=== PATIENT | male | born 1995 | race Caucasian/White ===

== ENCOUNTER 2020-09-18 11:24 | Emergency (ER) | payer OTHER ==
--- NOTE | 2020-09-18 11:59 | ED Physician Documentation ---
History of Present Illness - Stated complaint Stated Complaint: SI - Chief complaint Chief Complaint: MHE - History obtained from History obtained from: Patient - Additonal information Additional information: 24-year-old man with past medical history of depression not currently on meds (previously prozac, paxil), GERD, otherwise healthy p/w depression and passive thoughts of suicide s/p recent breakup 3 weeks ago. no weapons in the home, no prior suicide attempts, no active plan. denies HI/AVH. requesting outpatient mental health resources. Review of Systems Ten Systems: 10 systems reviewed and negative Psychiatric: reports: Depressed. denies: Homicidal, Hallucinations, Anxiety PD PAST MEDICAL HISTORY - Past Medical History Past Medical History: Yes Cardiovascular: None Respiratory: Asthma Neuro: Headaches Endocrine/Autoimmune: None GI: GERD : None HEENT: None Psych: Depression, Anxiety Musculoskeletal: None Derm: None - Past Surgical History Past Surgical History: No - Present Medications Home Medications: Ambulatory Orders Medication Instructions Recorded Confirmed FLUoxetine [PROzac] 10 mg PO DAILY #30 tab 09/18/20 Omeprazole [PriLOSEC] 20 mg PO DAILY 09/18/20 09/18/20 - Allergies Allergies/Adverse Reactions: Allergies Allergy/AdvReac Type Severity Reaction Status Date / Time No Known Drug Allergies Allergy Verified 09/18/20 11:36 - Social History Does the pt smoke?: No Smoking Status: Never smoker Does the pt drink ETOH?: No Does the pt have substance abuse?: No - Immunizations Immunizations are current?: Yes PD ED PE NORMAL - Vitals Vital signs reviewed: Yes - General General: Alert and oriented X 3, No acute distress, Well developed/nourished - HEENT HEENT: Atraumatic, PERRL, EOMI - Neck Neck: Supple, no meningeal sign, Thyroid normal - Cardiac Cardiac: RRR - Respiratory Respiratory: No respiratory distress, Clear bilaterally - Abdomen Abdomen: Non tender, Non distended - Back Back: Other (no deformity) - Derm Derm: Normal color, Warm and dry - Extremities Extremities: No deformity - Neuro Neuro: Alert and oriented X 3 - Psych Psych: Normal affect, Other (depressed mood) Results - Vitals Vitals: Vital Signs - 24 hr 09/18/20 11:31 Temperature 36.7 C Heart Rate 99 Respiratory 18 Rate Blood Pressure 145/85 H O2 Saturation 98 Oxygen O2 Source Room air PD MEDICAL DECISION MAKING - ED course ED course: 24-year-old man presents with depression and passive thoughts of suicide. He states that he has gotten counseling previously at the [facility] but usually takes about a week and he wanted to speak with somebody today. He does not have a plan to kill himself and says that he is only having passive thoughts. Does not want inpatient admission. We will have him speak with our outreach and education social worker for outpatient resources. Departure - Departure Disposition: 01 Home, Self Care Clinical Impression: Depression, Suicidal thoughts Condition: Good Instructions: ED Depression Prescriptions: FLUoxetine [PROzac] 10 mg PO DAILY #30 tab Comments: You were seen in the emergency department for depression and thoughts of suicide. Please return immediately if you develop any more persistent thoughts or a plan to kill yourself. Please also return if you have thoughts of killing or harming other people or hallucinations, new or worsening symptoms or other concerns. Follow-up with the mental health resources that our outreach and education social worker provided.
[2020-09-18 13:17] VITALS: BP 122/79
== END 2020-09-18 13:17 | disposition home or self-care (01) ==
LOC: ED 11:24
DX: F32.9 Major depressive disorder, single episode, unspecified (principal); R45.851 Suicidal ideations; K21.9 Gastro-esophageal reflux disease without esophagitis
CPT/HCPCS: 99283

== ENCOUNTER 2022-05-04 11:57 | Day surgery (SDC) | payer OTHER ==
[2022-05-04] MEDS ORDERED: LACTATED RINGERS 1,000 ML IV ONE (12:06)
[2022-05-04] MEDS ORDERED: CEFAZOLIN 2G/50ML 0.9% NS 2 GM/50 ML BAG IV ONE (12:09)
--- NOTE | 2022-05-04 13:21 | ANESTHESIA ---
Pre-Anesthesia VS, & Labs - Diagnosis right inguinal hernia - Procedure open right inguinal hernia repair with mesh Height: 5 ft 10 in Weight (kg): 84 kg Body Mass Index: 26.5 BMI Classification: Overweight - NPO >8 hours Home Medications and Allergies Home Medications: Ambulatory Orders No Known Home Medications 05/04/22 Allergies/Adverse Reactions: Allergies Allergy/AdvReac Type Severity Reaction Status Date / Time No Known Drug Allergies Allergy Verified 05/04/22 12:23 Anes History & Medical History - Anesthetic History Anesthesia Complications: reports: No previous complications - Medical History Cardiovascular: reports: None Pulmonary: reports: None Gastrointestinal: reports: None Urinary: reports: None Neuro: reports: Migraines Musculoskeletal: reports: Chronic back pain Endocrine/Autoimmune: reports: None Blood Disorders: reports: None Skin: reports: None Smoking Status: Current every day smoker (vapes) Psychosocial: reports: Depression, Anxiety History of Cancer?: No - Surgical History Eyes Ears Nose Throat (EENT): reports: Myringotomy (tubes) Exam General: Alert, Oriented x3, Cooperative, No acute distress Dental: WNL Mouth Openin Fingerbreadth Neck Mobility: Normal Mallampati classification: II Thyromental Distance: 4-6 cm Mental/Cognitive Status: Alert/Oriented X3, Normal for patient Plan Anesthesia Type: General Consent for Procedure(s) Verified and Reviewed: Yes Code Status: Attempt Resuscitation ASA classification: 2-Mild systemic disease Is this case an emergency?: No
[2022-05-04] MEDS ORDERED: NALOXONE 0.4 MG/ML VIAL IVP PRN (13:31)
[2022-05-04] MEDS ORDERED: ATROPINE ABBOJECT 1 MG/10 ML SYRINGE IVP PRN (13:31)
[2022-05-04] MEDS ORDERED: MORPHINE 2 MG/ML CARPUJECT IVP PRN (13:31)
[2022-05-04] MEDS ORDERED: fentaNYL 100 MCG/2 ML VIAL IVP PRN (13:31)
[2022-05-04] MEDS ORDERED: ONDANSETRON 4 MG/2 ML VIAL IVP PRN (13:31)
[2022-05-04] MEDS ORDERED: HYDROmorphone 0.5 MG/0.5 ML SYRINGE IVP PRN (13:31)
[2022-05-04] MEDS ORDERED: LIDOCAINE MPF 2%-EPI 1:200000 20 ML VIAL ONE (13:35)
[2022-05-04] MEDS ORDERED: BUPIVACAINE 0.25% PF 30 ML VIAL ONE (13:36)
[2022-05-04] MEDS ORDERED: MIDAZOLAM 2 MG/2 ML VIAL ONE (13:50)
[2022-05-04] MEDS ORDERED: PROPOFOL 200 MG/20 ML VIAL IVP ONE ×2 (13:50→15:34)
[2022-05-04] MEDS ORDERED: fentaNYL 100 MCG/2 ML VIAL ONE (13:51)
[2022-05-04] MEDS ORDERED: LACTATED RINGERS 1,000 ML IV SCH (14:00)
[2022-05-04] MEDS ORDERED: ONDANSETRON 4 MG/2 ML VIAL ONE (14:35)
[2022-05-04] MEDS ORDERED: ROCURONIUM 50 MG/5 ML VIAL ONE (14:35)
[2022-05-04] MEDS ORDERED: DEXAMETHASONE 4 MG/ML VIAL ONE (14:35)
[2022-05-04] MEDS ORDERED: BUPIVACAINE 0.25% PF 30 ML VIAL SUBQ ONE (14:48)
[2022-05-04] MEDS ORDERED: ePHEDrine 50 MG/ML VIAL IVP ONE (14:56)
[2022-05-04] MEDS ORDERED: PHENYLEPHRINE 10 MG/ML VIAL ONE (14:56)
[2022-05-04] MEDS ORDERED: SUGAMMADEX 200 MG/2 ML VIAL IVP ONE (15:33)
[2022-05-04] MEDS ORDERED: KETOROLAC 30 MG/ML VIAL ONE (15:34)
--- NOTE | 2022-05-04 15:55 | OPERATIVE REPORT ---
Operative Report - General Procedure Date: 05/04/22 Planned Procedure: open right inguinal hernia repair with mesh Pre-Op Diagnosis: right inguinal hernia Procedure Performed: open right inguinal hernia repair with mesh/ nayan Post Op Diagnosis: indirect inguinal hernia - Procedure Note Primary Surgeon: thom sun Anesthesia Technique: General ET tube, Local Pathology: benign tissue. not sent Estimated Blood Loss (mL): 2 Drain/Tube Type: Other (none) Indications: painful hernia bulge Findings: as above Complications: none - Other Other Information/Narrative: Patient was properly identified brought to the operating room and placed in supine position. Sequential compression devices were placed. General endotracheal anesthesia was induced. He was prepped and draped in a sterile fashion and given preoperative antibiotics. Local anesthetic was given throughout the procedure. A 5 cm incision was made in the direction of Ronald's lines just cephalad of the pubic tubercle. Dissection proceeded with cutting current cautery. The superficial epigastric vein was identified clamped divided and tied with 3-0 Vicryl. Dissection proceeded down to the aponeurosis. The aponeurosis was opened in the direction of its fibers and extended to the external ring. Cord structures were mobilized and brought up. The nerves were carefully protected and preserved. Cord structures were mobilized and brought up. An indirect inguinal hernia was present. The hernia sac was mobilized off the cord structures and suture ligated with 2 O silk and further reduced. Preperitoneal fat was removed. The base was tied with 2 O vicryl. Polypropylene mesh was cut to size and with tails. The mesh was secured with multiple interrupted 0 Ethibond sutures. She was placed along the pubic tubercle, Herbert's ligament area and along the shelving border of Poupart's ligament. Sutures were placed medially along the abdominal wall musculature and internal oblique. The medial tail of the mesh was secured to the shelving border of Poupart's ligament with 3 interrupted 0 ethibond sutures recreating the internal ring of appropriate size. An additional suture was placed in the crotch of the mesh recreating an internal ring of appropriate size. Aponeurosis was closed with a running 2-0 Vicryl suture. The opposite was closed with interrupted 3-0 Vicryl suture. Buried interrupted subdermal 3-0 Vicryl sutures were then placed. And was closed with a running 4-0 Monocryl subcuticular suture. Dressing was applied. Patient was awakened and brought to recovery in good condition.
[2022-05-04] MEDS ORDERED: HYDROcod/ACETAM 5/325 MG TABLET PO PRN (15:56)
[2022-05-04] MEDS ORDERED: LACTATED RINGERS 200 ML IV ONE (16:00)
[2022-05-04] MEDS ORDERED: HYDROcod/ACETAM 5/325 MG TABLET ONE (16:41)
[2022-05-04 16:48] VITALS: BP 123/78
--- NOTE | 2022-05-04 17:18 | ANESTHESIA POST OP EVALUATION ---
Anesthesia Post Eval - Post Anesthesia Eval Vitals: Last Vital Signs Temp 36.9 C 05/04/22 16:46 Pulse 83 05/04/22 16:46 Resp 16 05/04/22 16:46 BP 123/78 05/04/22 16:46 Pulse Ox 100 05/04/22 16:46 O2 Flow Rate CV Function Including HR & BP: Stable Pain Control: Satisfactory Nausea & Vomiting: Negative Mental Status: Baseline Respiratory Status: Airway Patent Hydration Status: Satisfactory Anesthesia Complications: None
== END 2022-05-04 11:58 | disposition home or self-care (01) ==
LOC: SDS 11:57
PROVIDERS: ATTEND Surgery
DX: K40.90 Unilateral inguinal hernia, without obstruction or gangrene, not specified as recurrent (principal); F17.290 Nicotine dependence, other tobacco product, uncomplicated
CPT/HCPCS: 49505; A9270; J0690; J7120

== ENCOUNTER 2022-05-07 13:48 | Outpatient (CLI) | payer OTHER | END 2022-05-07 13:49 | disposition critical access hospital (66) | LOC: EMS 13:48 | DX: R55 Syncope and collapse (principal); R11.0 Nausea; R53.1 Weakness | CPT/HCPCS: A0425; A0427 ==

== ENCOUNTER 2022-05-07 14:11 | Emergency (ER) | payer OTHER ==
[2022-05-07] MEDS ORDERED: SODIUM CHLORIDE 0.9% 1,000 ML IV STA (14:45)
--- NOTE | 2022-05-07 14:47 | ED Physician Documentation ---
PD HPI SYNCOPE - Stated complaint Stated Complaint: SYNCOPAL EPISODE - Chief complaint Chief Complaint: Neuro - History obtained from History obtained from: Patient, EMS - History of Present Illness Witnessed: Witnessed Associated symptoms: No: Seizure, Incontinant of urine, Incontinant of stool, Headache, Vision changes Contributing factors: Recent med change Injury occurred: Fell Pain level max: 0 Pain level now: 0 - Additional information Additional information: 26-year-old male presents to the emergency department with a syncopal event at home today. He states that he had taken hydrocodone on an empty stomach, felt nauseated and lightheaded, went, threw up in the toilet and woke up on the floor. No injury. No chest pain. He states he felt mildly short of breath after taking the hydrocodone, but feels normal now. He had an inguinal hernia repair done 2 days ago. No leg pain or swelling. No abdominal pain. Patient states that he did pass out as a child, no cause found. Review of Systems Constitutional: denies: Fever, Chills Cardiac: denies: Chest pain / pressure, Palpitations Respiratory: denies: Dyspnea, Wheezing GI: denies: Diarrhea, Hematemesis, Bloody / black stool : denies: Dysuria, Frequency, Hesitancy Skin: denies: Rash Musculoskeletal: denies: Neck pain, Back pain Neurologic: denies: Headache PD PAST MEDICAL HISTORY - Past Medical History Cardiovascular: None Respiratory: None Neuro: Migraines Endocrine/Autoimmune: None GI: None : None HEENT: Chronic vision loss Psych: Depression, Anxiety, Panic attacks Musculoskeletal: Chronic back pain Derm: None - Past Surgical History Past Surgical History: No HEENT: Myringotomy (tubes) - Present Medications Home Medications: Ambulatory Orders Medication Instructions Recorded Confirmed HYDROcod/ACETAM 5/325 [[place] 5/325] 1 each PO Q6H PRN #35 tablet 05/04/22 05/07/22 - Allergies Allergies/Adverse Reactions: Allergies Allergy/AdvReac Type Severity Reaction Status Date / Time No Known Drug Allergies Allergy Verified 05/04/22 12:23 - Social History Does the pt smoke?: No Smoking Status: Current every day smoker (vapes) Does the pt drink ETOH?: No Does the pt have substance abuse?: No - Immunizations Immunizations are current?: Yes PD ED PE NORMAL - Vitals Vital signs reviewed: Yes - General General: Alert and oriented X 3, No acute distress - HEENT HEENT: Moist mucous membranes - Neck Neck: Supple, no meningeal sign - Cardiac Cardiac: RRR, No murmur, Strong equal pulses - Respiratory Respiratory: No respiratory distress, Clear bilaterally - Abdomen Abdomen: Soft, Non tender, Non distended - Back Back: No CVA TTP, No spinal TTP - Derm Derm: Warm and dry, No rash - Extremities Extremities: No edema, No calf tenderness / cord - Neuro Neuro: Alert and oriented X 3 Results - Vitals Vitals: Vital Signs - 24 hr 05/07/22 05/07/22 05/07/22 14:18 14:55 15:25 Temperature 36.3 C L Heart Rate 79 80 72 Respiratory 18 14 16 Rate Blood Pressure 128/81 H 128/82 H 127/68 O2 Saturation 100 100 99 05/07/22 16:00 Temperature Heart Rate 103 H Respiratory 17 Rate Blood Pressure 120/81 H O2 Saturation 99 Oxygen O2 Source Room air - EKG (time done) 1414 Rate: Rate (enter#) (73) Rhythm: NSR House: Normal Intervals: Normal [place] QRS: Normal Ischemia: Normal ST segments - Labs Labs: Laboratory Tests 05/07/22 05/07/22 14:53 14:53 WBC 9.0 RBC 4.45 L Hgb 13.0 L Hct 37.9 L MCV 85.2 MCH 29.2 MCHC 34.3 RDW 12.1 Plt Count 201 MPV 8.1 Neut # (Auto) 7.4 H Lymph # (Auto) 0.9 L [place] # (Auto) 0.6 Eos # (Auto) 0.0 Baso # (Auto) 0.0 Absolute Nucleated RBC 0.00 Nucleated RBC % 0.0 Sodium 137 Potassium 3.6 Chloride 102 Carbon Dioxide 28 Anion Gap 7.0 BUN 16 Creatinine 1.1 Estimated GFR (MDRD) 80 L Glucose 111 H Calcium 9.0 Total Bilirubin 1.8 H AST 15 ALT 12 Alkaline Phosphatase 42 Total Protein 6.8 Albumin 4.0 Globulin 2.8 Albumin/Globulin Ratio 1.4 Lipase 30 PD Medical Decision Making - ED course Complexity details: reviewed results, re-evaluated patient, considered differential, d/w patient ED course: 26-year-old male status post a right inguinal hernia surgery 2 days ago. He took hydrocodone this morning and sounds like he had a vasovagal syncopal event in the bathroom. He is asymptomatic here. He has passed out before. No acute findings on laboratory testing. No acute findings on EKG. No acute findings on telemetry. Patient asymptomatic. No chest pain. No pleuritic chest pain. No hypoxia. We will have the patient follow-up with his doctor for further care. Patient states he will stop taking the hydrocodone. Patient counseled regarding signs and symptoms for which I believe and urgent re-evaluation would be necessary. Patient with good understanding of and agreement to plan and is comfortable going home at this time This document was made in part using voice recognition software. While efforts are made to proofread this document, sound alike and grammatical errors may occur. Departure - Departure Disposition: 01 Home, Self Care Clinical Impression: Vasovagal syncope Condition: Good Instructions: ED Syncope Vasovagal Follow-Up: STEFANIA LY MD [Primary Care Provider] - Within 1 week Comments: I would avoid taking the hydrocodone. Make sure you are drinking plenty of fluids. Return if you worsen. Discharge Date/Time: 05/07/22 16:21
[2022-05-07 14:58] LABS: BASOPHILS % (AUTO) 0.3 %; EOSINOPHILS % (AUTO) 0.3 %; HCT - HEMATOCRIT 37.9 % (42.0-52.0); LYMPHOCYTES # (AUTO) 0.9 10^3/uL (1.5-3.5); LYMPHOCYTES % (AUTO) 10.1 %; MEAN CORPUSCULAR HEMOGLOBIN 29.2 pg (27.0-31.0); MEAN CORPUSCULAR HGB CONC 34.3 g/dL (32.0-36.0); MEAN CORPUSCULAR VOLUME 85.2 fL (80.0-94.0); MEAN PLATELET VOLUME 8.1 fL (7.4-11.4); MONOCYTES # (AUTO) 0.6 10^3/uL (0.0-1.0); MONOCYTES % (AUTO) 6.3 %; NEUTROPHILS # (AUTO) 7.4 10^3/uL (1.5-6.6); NEUTROPHILS % (AUTO) 82.6 %; PLT - PLATELET COUNT 201 10^3/uL (130-450); RED BLOOD COUNT 4.45 10^6/uL (4.70-6.10); RED CELL DISTRIBUTION WIDTH 12.1 % (12.0-15.0)
[2022-05-07 15:17] LABS: ALBUMIN/GLOBULIN RATIO 1.4 (1.0-2.2); BILIRUBIN,TOTAL 1.8 mg/dL (0.2-1.0); CREATININE 1.1 mg/dL (0.6-1.2); POTASSIUM 3.6 mmol/L (3.5-5.0); TOTAL PROTEIN 6.8 g/dL (6.7-8.2)
[2022-05-07 16:10] VITALS: BP 120/81
== END 2022-05-07 16:21 | disposition home or self-care (01) ==
LOC: EDUNIT# → ED 14:11
DX: R55 Syncope and collapse (principal); F17.290 Nicotine dependence, other tobacco product, uncomplicated
CPT/HCPCS: 36415; 80053; 83690; 85025; 93005; 99284

== ENCOUNTER 2022-11-11 08:33 | Emergency (ER) | payer OTHER ==
--- NOTE | 2022-11-11 08:48 | ED Physician Documentation ---
PD HPI CHEST PAIN - Stated complaint Stated Complaint: CHEST TIGHTNESS - Chief complaint Chief Complaint: Cardiac - History obtained from History obtained from: Patient - History of Present Illness Timing - onset: How many weeks ago (1) Timing - onset during: Light activity Timing - duration: Weeks (1) Timing - details: Gradual onset, Still present, Waxing and waning Quality: Tightness. No: Sharp, Stabbing, Pain Location: Substernal Radiation: No: Neck, Back, Abdominal Improved by: Rest Worsened by: Exertion, Inspiration. No: Eating, Palpation Associated symptoms: Shortness of air, Other (nasal/sinus congestion, and sore thrat at times.). No: Nausea, Palpitations, Cough Similar symptoms before: Has not had sx before Review of Systems Constitutional: denies: Fever, Chills, Myalgias Nose: reports: Congestion, Sinus pressure / pain Throat: reports: Sore throat Cardiac: denies: Palpitations, Pedal edema Respiratory: reports: Dyspnea. denies: Cough GI: denies: Vomiting, Diarrhea PD PAST MEDICAL HISTORY - Past Medical History Cardiovascular: None Respiratory: None Neuro: Migraines Endocrine/Autoimmune: None GI: None : None HEENT: Chronic vision loss Psych: Depression, Anxiety, Panic attacks Musculoskeletal: Chronic back pain Derm: None - Past Surgical History Past Surgical History: No HEENT: Myringotomy (tubes) - Present Medications Home Medications: Ambulatory Orders Medication Instructions Recorded Confirmed HYDROcod/ACETAM 5/325 [[place] 5/325] 1 each PO Q6H PRN #35 tablet 05/04/22 05/07/22 Albuterol Sulf [Ventolin Hfa 2 - 3 puffs INH QID #1 each 11/11/22 Inhaler] - Allergies Allergies/Adverse Reactions: Allergies Allergy/AdvReac Type Severity Reaction Status Date / Time No Known Drug Allergies Allergy Verified 11/11/22 08:47 - Social History Does the pt smoke?: No Smoking Status: Current every day smoker (vapes) Does the pt drink ETOH?: No Does the pt have substance abuse?: No - Immunizations Immunizations are current?: Yes PD ED PE NORMAL - Vitals Vital signs reviewed: Yes - General General: Alert and oriented X 3, No acute distress, Well developed/nourished - HEENT HEENT: Ears normal, Pharynx benign - Neck Neck: Supple, no meningeal sign, No adenopathy - Cardiac Cardiac: RRR, No murmur - Respiratory Respiratory: No respiratory distress, Clear bilaterally - Abdomen Abdomen: Soft, Non tender - Derm Derm: Normal color, Warm and dry - Extremities Extremities: No edema, No calf tenderness / cord - Neuro Neuro: Alert and oriented X 3, No motor deficit, Normal speech Results - Vitals Vitals: Oxygen O2 Source Room air - EKG (time done) 08:44 EKG releavant findings:: EKG personally interpreted by author of this note. Relevant findings are: Rate: Rate (enter#) (94) Rhythm: NSR [place]: Normal Intervals: Normal [place] QRS: Normal Ischemia: Normal ST segments. No: ST elevation c/w ischemia, ST depression - Labs Labs: Laboratory Tests 11/11/22 11/11/22 09:19 09:19 Sodium 137 Potassium 3.7 Chloride 103 Carbon Dioxide 29 Anion Gap 5.0 L BUN 17 Creatinine 1.2 Estimated GFR (MDRD) 72 L Glucose 123 H Calcium 10.0 Total Bilirubin 1.3 H AST 16 ALT 14 Alkaline Phosphatase 58 Troponin I High Sens 3.2 Total Protein 7.0 Albumin 4.6 Globulin 2.4 Albumin/Globulin Ratio 1.9 Lipase 21 - Rads (name of study) chest xray Relevant Findings:: Prelim report reviewed, EMP independent interpretation of test (no acute process) PD Medical Decision Making - ED course Complexity details: considered differential, d/w patient Reviewed Lab Results: he has normal ECG and trop as well as chest xray. He has had some dyspnea and describes some congestion/sore throat lately. So consider environmental irritants/allergies and also affecting bronchial funciton. Can try inhaler. He says he had cleaned some mold from ceiling/ortiz recently and wondered about that. I think it would have similar irritant effect and he does not have real bronchitis/pneumonia type symptoms (and chest xray is clear). Some sinus pressure/congestion but not cough/fevers, but still could consider mild viral syndrome. Good heart sounds and normal ECG amplutitde. Doubt cardiomyopathy/pericarditis. Departure - Departure Disposition: 01 Home, Self Care Clinical Impression: Chest discomfort Condition: Stable Record reviewed to determine appropriate education?: Yes Instructions: ED Dyspnea Shortness of Breath Prescriptions: Albuterol Sulf [Ventolin Hfa Inhaler] 2 - 3 puffs INH QID #1 each Comments: Your chest x-ray is clear without any signs of pneumonia, fluid buildup, enlarged heart or heart failure. Your EKG and a blood test called troponin are normal. No signs of heart attack or heart failure on these. Your basic chemistry panel showed normal electrolytes and kidney function. Your heart rhythm is normal and your oxygenation is good. At this point we can exclude a fair number of more important diagnoses. Consideration at this point would be mild viral type illness causing some irrit ation to the bronchioles or even environmental irritants such as pollens or molds causing some seasonal allergy type effect not only of your sinuses and throat but can happen in the bronchioles as well. At this point I would suggest trying a an inhaler like would be used for allergies or asthma. 2 to 3 puffs 4 times daily for the next several days to week and see how you are feeling. Recheck if not improved over a short time, several days to week. Recheck if worsening, in particular increased cough or sputum fevers etc. I sent a prescription for an inhaler to [facility] pharmacy. Forms: PCP List Discharge Date/Time: 11/11/22 10:09
[2022-11-11 09:50] LABS: ALBUMIN 4.6 g/dL (3.2-5.5); ALBUMIN/GLOBULIN RATIO 1.9 (1.0-2.2); BILIRUBIN,TOTAL 1.3 mg/dL (0.2-1.0); CREATININE 1.2 mg/dL (0.6-1.3); POTASSIUM 3.7 mmol/L (3.5-4.5)
[2022-11-11 10:14] VITALS: BP 124/69
--- NOTE | 2022-11-11 10:40 | XRAY Report ---
PROCEDURE: Chest 1 View X-Ray INDICATIONS: chest pain TECHNIQUE: One view of the chest was acquired. COMPARISON: None. FINDINGS: Surgical changes and devices: None. Lungs and pleura: No pleural effusions or pneumothorax. Lungs are clear. Mediastinum: Mediastinal contours appear normal. Heart size is normal. Bones and chest wall: No suspicious bony lesions. Overlying soft tissues appear unremarkable. IMPRESSION: No acute cardiopulmonary process. Reviewed by: Isidro Bauer MD on 11/11/2022 9:38 AM CELI Approved by: Isidro Bauer MD on 11/11/2022 9:38 AM CELI Station ID: [id number]
== END 2022-11-11 10:09 | disposition home or self-care (01) ==
LOC: ED 08:33
DX: R07.9 Chest pain, unspecified (principal); F17.290 Nicotine dependence, other tobacco product, uncomplicated
CPT/HCPCS: 36415; 80053; 83690; 84484; 93005; 99284

== ENCOUNTER 2023-06-24 12:11 | Day surgery (SDC) | payer OTHER ==
[2023-06-24 12:53] LABS: BASOPHILS # (AUTO) 0.1 10^3/uL (0.0-0.1); BASOPHILS % (AUTO) 0.5 %; EOSINOPHILS # (AUTO) 0.1 10^3/uL (0.0-0.7); EOSINOPHILS % (AUTO) 0.8 %; HCT - HEMATOCRIT 43.7 % (42.0-52.0); HGB - HEMOGLOBIN 14.6 g/dL (14.0-18.0); LYMPHOCYTES # (AUTO) 1.1 10^3/uL (1.5-3.5); LYMPHOCYTES % (AUTO) 12.3 %; MEAN CORPUSCULAR HEMOGLOBIN 28.8 pg (27.0-31.0); MEAN CORPUSCULAR HGB CONC 33.4 g/dL (32.0-36.0); MEAN CORPUSCULAR VOLUME 86.2 fL (80.0-94.0); MEAN PLATELET VOLUME 8.3 fL (7.4-11.4); MONOCYTES # (AUTO) 0.5 10^3/uL (0.0-1.0); MONOCYTES % (AUTO) 5.8 %; NEUTROPHILS # (AUTO) 7.4 10^3/uL (1.5-6.6); NEUTROPHILS % (AUTO) 80.3 %; PLT - PLATELET COUNT 248 10^3/uL (130-450); RED BLOOD COUNT 5.07 10^6/uL (4.70-6.10); WHITE BLOOD COUNT 9.2 x10^3/uL (4.8-10.8)
[2023-06-24 13:07] LABS: BILIRUBIN,URINE NEGATIVE (NEGATIVE); GLUCOSE, URINE (UA) NEGATIVE (NEGATIVE); KETONES,URINE (UA) NEGATIVE (NEGATIVE); LEUKOCYTE ESTERASE, URINE NEGATIVE (NEGATIVE); NITRITE,URINE NEGATIVE (NEGATIVE); OCCULT BLOOD,URINE NEGATIVE (NEGATIVE); PROTEIN,URINE NEGATIVE (NEGATIVE); UROBILINOGEN,URINE 0.2 (NORMAL) E.U./dL (NORMAL)
[2023-06-24 13:09] LABS: ALBUMIN 4.5 g/dL (3.2-5.5); ALBUMIN/GLOBULIN RATIO 1.5 (1.0-2.2); BILIRUBIN,TOTAL 0.9 mg/dL (0.2-1.0); CALCIUM 9.9 mg/dL (8.5-10.3); CREATININE 1.1 mg/dL (0.6-1.3); POTASSIUM 4.1 mmol/L (3.5-4.5); TOTAL PROTEIN 7.5 g/dL (6.4-8.9)
[2023-06-24 13:11] LABS: CLARITY,URINE CLEAR (CLEAR)
--- NOTE | 2023-06-24 13:17 | ED Physician Documentation ---
PD HPI ABD PAIN - Stated complaint Stated Complaint: ABD PX - Chief complaint Chief Complaint: Abd Pain - History obtained from History obtained from: Patient - Additional information Additional information: History of right inguinal hernia repair with mesh. Otherwise no abdominal surgeries and very healthy. He had some lower abdominal pain about a week ago that he thought was related to exercise, it went away but seem to have come back over the last day or so. Denies nausea. He has been constipated for a day or 2. No urinary complaints. No fevers or chills. PD PAST MEDICAL HISTORY - Past Medical History Cardiovascular: None Respiratory: None Neuro: Migraines Endocrine/Autoimmune: None GI: None : None HEENT: Chronic vision loss Psych: Depression, Anxiety, Panic attacks Musculoskeletal: Chronic back pain Derm: None - Past Surgical History Past Surgical History: No HEENT: Myringotomy (tubes) - Present Medications Home Medications: Ambulatory Orders Medication Instructions Recorded Confirmed No Known Home Medications 06/24/23 06/24/23 - Allergies Allergies/Adverse Reactions: Allergies Allergy/AdvReac Type Severity Reaction Status Date / Time No Known Drug Allergies Allergy Verified 06/24/23 12:42 - Social History Does the pt smoke?: No Smoking Status: Never smoker Does the pt drink ETOH?: No Does the pt have substance abuse?: No - Immunizations Immunizations are current?: Yes PD ED PE NORMAL - Vitals Vital signs reviewed: Yes - General General: Alert and oriented X 3, No acute distress - Cardiac Cardiac: RRR, No murmur - Abdomen Abdomen: Normal bowel sounds, Soft, Other (Focally and exquisitely tender in the right lower quadrant with borderline positive Rovsing.) - Neuro Neuro: Alert and oriented X 3 Results - Vitals Vitals: Vital Signs - 24 hr 06/24/23 12:38 Temperature 37.5 C Heart Rate 96 Respiratory 16 Rate Blood Pressure 124/73 O2 Saturation 98 Oxygen O2 Source Room air - Labs Labs: Laboratory Tests 06/24/23 06/24/23 06/24/23 12:50 12:50 13:00 WBC 9.2 RBC 5.07 Hgb 14.6 Hct 43.7 MCV 86.2 MCH 28.8 MCHC 33.4 RDW 12.0 Plt Count 248 MPV 8.3 Neut # (Auto) 7.4 H Lymph # (Auto) 1.1 L [place] # (Auto) 0.5 Eos # (Auto) 0.1 Baso # (Auto) 0.1 Absolute Nucleated RBC 0.00 Nucleated RBC % 0.0 Sodium 139 Potassium 4.1 Chloride 104 Carbon Dioxide 29 Anion Gap 6.0 BUN 19 Creatinine 1.1 Estimated GFR (MDRD) 79 L Glucose 137 H Calcium 9.9 Total Bilirubin 0.9 AST 13 ALT 13 Alkaline Phosphatase 75 Total Protein 7.5 Albumin 4.5 Globulin 3.0 Albumin/Globulin Ratio 1.5 Lipase 18 Urine Color YELLOW Urine Clarity CLEAR Urine pH 7.0 Ur Specific [place] 1.015 Urine Protein NEGATIVE Urine Glucose (UA) NEGATIVE Urine Ketones NEGATIVE Urine Occult Blood NEGATIVE Urine Nitrite NEGATIVE Urine Bilirubin NEGATIVE Urine Urobilinogen 0.2 (NORMAL) Ur Leukocyte Esterase NEGATIVE Ur Microscopic Review NOT INDICATED Urine Culture Comments NOT INDICATED - Rads (name of study) CT abdomen pelvis suggestive of uncomplicated appendicitis. Relevant Findings:: Final report received, EMP independent interpretation of test PD Medical Decision Making - ED course ED course: 27-year-old gentleman who clinically likely has appendicitis confirmed on CT. His blood work, CBC, CMP, and urinalysis were unremarkable. I spoke with Dr. Medrano, our surgeon who will make his way in and we initially spoke around 2:20 PM. Departure - Departure Disposition: ED Transfer to [facility] Clinical Impression: Appendicitis Condition: Good Record reviewed to determine appropriate education?: Yes Forms: PCP List
[2023-06-24] MEDS ORDERED: iohexoL-300 100 ML VIAL ONE (13:20)
[2023-06-24] MEDS: iohexoL-300 100 ML VIAL IVP ONE (13:50)
--- NOTE | 2023-06-24 14:18 | CT Report ---
PROCEDURE: Abdomen/Pelvis W INDICATIONS: iv only rlq pain CONTRAST: 100ml omni 300 TECHNIQUE: After the administration of intravenous contrast, a CT scan of the abdomen and pelvis was performed. Images were recorded and evaluated at appropriate window settings. Reformats: coronal and sagittal. F or radiation dose reduction, the following was used: automated exposure control, adjustment of mA and /or kV according to patient size. COMPARISON: None. FINDINGS: Image quality: Diagnostic. Lower chest: Unremarkable. Liver: No solid mass. Gallbladder and biliary tree: The gallbladder is relatively decompressed. The gallbladder demonstrate s a hyperenhancing wall, which appears thickened. Spleen: No splenomegaly. Pancreas: No pancreatic ductal dilation. Adrenals: No adrenal nodule. Kidneys and ureters: No hydronephrosis. No renal cystic lesion which requires follow up. No solid mas s. Stomach, bowel and peritoneum: The appendix is abnormal, with a hyperenhancing wall. The appendix hitesh sures up to 1 cm, and is oriented inferiorly. There is moderate to prominent surrounding inflammatory change, with free fluid seen. No free air is seen. No abscess is seen. No dilated loops of small bowel are seen. No significant colonic abnormality is seen. The stomach is relatively decompressed at the time of this study, limiting its evaluation. Lymph nodes: No central or retroperitoneal adenopathy. Vessels: No infrarenal aortic aneurysm. PELVIS Reproductive organs: Unremarkable. Bladder: No abnormal wall thickening, accounting for underdistention. Pelvic lymph nodes: No pelvic adenopathy by size criteria. Bones: No aggressive osseous abnormality. Other: No significant ventral or inguinal hernia. IMPRESSION: High suspicion for appendicitis, with a hyperenhancing appendix, which is mildly enlarged. Relatively prominent surrounding inflammatory change can be seen. No findings of perforation or abscess can be seen. The gallbladder is collapsed, with a thickened appearing, hyperenhancing wall. This may be artifactua l. If there is clinical concern for cholecystitis, please consider a follow-up right upper quadrant u ltrasound for further evaluation. Reviewed by: Kenrick Dye MD on 06/24/2023 1:16 PM [facility] Approved by: Kenrick Dye MD on 06/24/2023 1:16 PM [facility] Station ID: [id number]
--- NOTE | 2023-06-24 15:09 | HISTORY & PHYSICAL EXAMINATION ---
Chief Complaint - Chief Complaint Chief Complaint: mild abdominal pain 2 weeks ago. much worse this am and loss of appetite History of Present Illness - Admitted From Admitted From:: ed - History Obtained From Records Reviewed: yes History obtained from: pt Exam Limitations: none - History of Present Illness HPI Comment/Other: mild rlq pain 2 weeks ago. much worse this am and loss of appetite today. History - Past Medical History Cardiovascular: reports: None Respiratory: reports: None Neuro: reports: Migraines Endocrine/Autoimmune: reports: None GI: reports: None : reports: None HEENT: reports: Chronic vision loss Psych: reports: Depression, Anxiety, Panic attacks Musculoskeletal: reports: Chronic back pain Derm: reports: None MRSA Hx?: No - Past Surgical History HEENT: reports: Myringotomy (tubes) Meds/Allgy - Home Medications Home Medications: Ambulatory Orders Medication Instructions Recorded Confirmed No Known Home Medications 06/24/23 06/24/23 - Allergies Allergies/Adverse Reactions: Allergies Allergy/AdvReac Type Severity Reaction Status Date / Time No Known Drug Allergies Allergy Verified 06/24/23 12:42 Review of Systems - Other Findings Other Findings: 10 pt ros as above otherwise unremarkable Exam - Vital Signs Vital Signs: Vital Signs x48h Temp Pulse Resp BP Pulse Ox 06/24/23 12:38 37.5 C 96 16 124/73 98 - Physical Exam General Appearance: positive: No acute distress, Alert Eyes Bilateral: positive: PERRL, EOMI ENT: positive: No signs of dehydration Neck: positive: No JVD, Trachea midline Respiratory: positive: No respiratory distress Cardiovascular: positive: Regular rate & rhythm Abdomen: positive: No distention, Other (focal rlq tenderness with localized peritonitis) Neurologic/Psychiatric: positive: Oriented x3 Conclusion/Plan - Problem List (1) Appendicitis Conclusion/Plan: plan appendectomy. parq held and consent obtained - Lab Results Fish Bones: 06/24/23 12:50 06/24/23 12:50
--- NOTE | 2023-06-24 15:45 | ANESTHESIA ---
Pre-Anesthesia VS, & Labs - Diagnosis appendicitis - Procedure laparoscopic appendectomy Vital Signs: Temp Pulse Resp BP Pulse Ox O2 Flow Rate 37.5 C 96 16 124/73 98 06/24/23 12:38 06/24/23 12:38 06/24/23 12:38 06/24/23 12:38 06/24/23 12:38 Height: 5 ft 10 in Weight (kg): 86.183 kg Body Mass Index: 27.2 BMI Classification: Overweight - NPO Other (pringles at 10am) - Lab Results Current Lab Results: Laboratory Tests 06/24/23 12:50: Sodium 139, Potassium 4.1, Chloride 104, Carbon Dioxide 29, Anion Gap 6.0, BUN 19, Creatinine 1.1, Estimated GFR (MDRD) 79 L, Glucose 137 H, Calcium 9.9, Total Bilirubin 0.9, AST 13, ALT 13, Alkaline Phosphatase 75, Total Protein 7.5, Albumin 4.5, Globulin 3.0, Albumin/Globulin Ratio 1.5, Lipase 18 06/24/23 12:50: WBC 9.2, RBC 5.07, Hgb 14.6, Hct 43.7, MCV 86.2, MCH 28.8, MCHC 33.4, RDW 12.0, Plt Count 248, MPV 8.3, Neut # (Auto) 7.4 H, Lymph # (Auto) 1.1 L, Waller # (Auto) 0.5, Eos # (Auto) 0.1, Baso # (Auto) 0.1, Absolute Nucleated RBC 0.00, Nucleated RBC % 0.0 Fish Bones: 06/24/23 12:50 06/24/23 12:50 Home Medications and Allergies Home Medications: Ambulatory Orders No Known Home Medications 06/24/23 No Known Home Medications 06/24/23 Allergies/Adverse Reactions: Allergies Allergy/AdvReac Type Severity Reaction Status Date / Time No Known Drug Allergies Allergy Verified 06/24/23 12:42 Anes History & Medical History - Anesthetic History Anesthesia Complications: reports: No previous complications - Medical History Cardiovascular: reports: None Pulmonary: reports: Asthma Gastrointestinal: reports: None Urinary: reports: None Neuro: reports: Migraines Musculoskeletal: reports: Chronic back pain Endocrine/Autoimmune: reports: None Blood Disorders: reports: None Skin: reports: None Smoking Status: Never smoker - Surgical History Eyes Ears Nose Throat (EENT): reports: Myringotomy (tubes) Exam General: Alert Dental: WNL Mouth Opening: Greater than 4 Fingerbreadths Neck Mobility: Normal Mallampati classification: I Thyromental Distance: greater than 6 cm Respiratory: Lungs clear Cardiovascular: Regular rate Plan Anesthesia Type: General Consent for Procedure(s) Verified and Reviewed: Yes Code Status: Attempt Resuscitation ASA classification: 2-Mild systemic disease Is this case an emergency?: Yes
[2023-06-24] MEDS: PIPERACILLIN/TAZOBACTAM 3.375 GM in SODIUM CHLORIDE 0.9% MINIBAG 100 ML IV STA (15:50)
[2023-06-24] MEDS ORDERED: BUPIVACAINE 0.25% PF 30 ML VIAL ONE (16:29)
[2023-06-24] MEDS ORDERED: MIDAZOLAM 2 MG/2 ML VIAL ONE (16:31)
[2023-06-24] MEDS ORDERED: ONDANSETRON 4 MG/2 ML VIAL ONE ×3 (16:32→19:41)
[2023-06-24] MEDS ORDERED: fentaNYL 100 MCG/2 ML VIAL ONE ×2 (16:32→17:52)
[2023-06-24] MEDS ORDERED: ROCURONIUM 50 MG/5 ML VIAL ONE ×2 (16:32→17:51)
[2023-06-24] MEDS ORDERED: PROPOFOL 200 MG/20 ML VIAL IVP ONE ×2 (16:45→18:45)
[2023-06-24] MEDS ORDERED: LIDOCAINE-PF 2% 10 ML AMP SUBQ ONE (16:45)
[2023-06-24] MEDS: BUPIVACAINE 0.25% PF 30 ML VIAL SUBQ ONE (18:00)
[2023-06-24] MEDS ORDERED: SUGAMMADEX 200 MG/2 ML VIAL IVP ONE (18:45)
[2023-06-24] MEDS ORDERED: ACETAMINOPHEN 1,000 MG/100 ML 1,000 MG/100 ML BAG IV ONE (18:52)
[2023-06-24] MEDS: LACTATED RINGERS 1,000 ML IV ONE (19:12)
--- NOTE | 2023-06-24 19:19 | OPERATIVE REPORT ---
Operative Report - General Procedure Date: 06/24/23 Planned Procedure: lap appy Pre-Op Diagnosis: appendicitis Procedure Performed: lap appy Post Op Diagnosis: appendicitis - Procedure Note Primary Surgeon: thom sun Anesthesia Technique: General ET tube, Local Pathology: appendix Estimated Blood Loss (mL): 10 Drain/Tube Type: Other (none) Indications: appendicitis with localized peritonitis Findings: normal base of appendix. mid appendix and mesoappendix very thick normal liver Complications: none - Other Other Information/Narrative: The patient was properly identified brought to the operating room and placed in supine position. The patient was previously given antibiotics. Sequential compression devices were placed. General endotracheal anesthesia was induced. The patient was prepped and draped in a sterile fashion. Local anesthetic was given to incision areas. An infraumbilical incision was made in and proceeded down to the fascia. The fascia was incised lifted upwards and abdomen entered with a Veress needle. CO2 was insufflated to a pressure of 15. A 12 mm trocar was placed with 30 degree scope. There was no evidence of injury from Veress needle or trocar placement. Under direct vision a 5 mm trocar was placed suprapubic and a 5 mm trocar was placed in the right upper quadrant. Appendix was identified and retracted anteriorly. Peritoneal attachments were taken down with careful use of cautery. Appendix was mobilized more anterior. A plane was then created between the mesoappendix and the appendix at the cecum. Appendix was divided with an Endo URSULA intestinal load to include up a small portion of the cecum. The mesoappendix was then divided with an Endo URSULA vascular load. There was secure closure at the cecum and hemostasis was assured. The mesoappendix required reinforcement with 10 mm clips for hemostasis. The appendix was brought out. The abdomen was thoroughly irrigated and hemostasis again assured. Trochars were removed under direct vision. Fascia at the infraumbilical site was closed with a running 0 Vicryl suture. Subcutaneous tissue was irrigated and skin reapproximated with buried interrupted 4-0 Monocryl. Dressings were applied. The patient tolerated the procedure well was awakened and brought to recovery in good condition.
[2023-06-24] MEDS ORDERED: ONDANSETRON 4 MG/2 ML VIAL IVP PRN (19:23)
[2023-06-24] MEDS: HYDROmorphone 1 MG/ML CARPUJECT ONE (19:24)
[2023-06-24] MEDS ORDERED: ATROPINE ABBOJECT 1 MG/10 ML SYRINGE IVP PRN (19:33)
[2023-06-24] MEDS ORDERED: fentaNYL 100 MCG/2 ML VIAL IVP PRN (19:33)
[2023-06-24] MEDS ORDERED: ePHEDrine 50 MG/ML VIAL IVP PRN (19:33)
[2023-06-24] MEDS ORDERED: NALOXONE 0.4 MG/ML VIAL IVP PRN (19:33)
[2023-06-24] MEDS ORDERED: MORPHINE 2 MG/ML CARPUJECT IVP PRN (19:33)
[2023-06-24] MEDS ORDERED: HYDROmorphone 1 MG/ML CARPUJECT ONE (19:34)
[2023-06-24] MEDS: HYDROmorphone 0.5 MG/0.5 ML SYRINGE IVP PRN ×2 (19:40→23:06)
[2023-06-24] MEDS: ONDANSETRON 4 MG/2 ML VIAL IVP PRN (19:43)
[2023-06-24] MEDS ORDERED: LACTATED RINGERS 1,000 ML IV SCH (20:00)
--- NOTE | 2023-06-24 20:09 | ANESTHESIA POST OP EVALUATION ---
Anesthesia Post Eval - Post Anesthesia Eval Vitals: Last Vital Signs Temp 37.0 C 06/24/23 19:40 Pulse 84 06/24/23 19:54 Resp 16 06/24/23 19:54 BP 139/78 H 06/24/23 19:54 Pulse Ox 98 06/24/23 19:54 O2 Flow Rate CV Function Including HR & BP: Stable Pain Control: Satisfactory Nausea & Vomiting: Negative Mental Status: Baseline Respiratory Status: Airway Patent Hydration Status: Satisfactory Anesthesia Complications: None
[2023-06-24] MEDS: D5.45NS W/20 MEQ KCL 1,000 ML IV STA (20:28)
[2023-06-24] MEDS: PIPERACILLIN/TAZOBACTAM 3.375 GM in SODIUM CHLORIDE 0.9% MINIBAG 100 ML IV SCH (21:56)
[2023-06-25] MEDS: HYDROcod/ACETAM 5/325 MG TABLET PO PRN (01:11)
[2023-06-25] MEDS: ACETAMINOPHEN 500 MG TABLET PO PRN (03:00)
[2023-06-25 07:55] VITALS: O2SAT 97
[2023-06-25 11:22] VITALS: BP 128/79
== END 2023-06-25 15:50 | disposition home or self-care (01) ==
LOC: ED 12:11 → SDS 15:07 → MS3 18:00 → SDS 06-25 15:50
PROVIDERS: ATTEND Surgery
PROC: 0DTJ4ZZ Resection of Appendix, Percutaneous Endoscopic Approach (ICD-10-PCS; principal; 2023-06-24 16:00)
DX: K35.32 Acute appendicitis with perforation, localized peritonitis, and gangrene, without abscess (principal); J45.909 Unspecified asthma, uncomplicated
CPT/HCPCS: 36415; 44970; 74177; 80053; 81003; 83690; 85025; 96365; 99284; 99285; A9270; J0131; J1170; J7120; Q9967; 81001; 87086